=== PATIENT | male | born 1960 ===

== ENCOUNTER 2017-07-10 20:20 | Emergency (ER) | payer MEDICARE, MEDICAID ==
[2017-07-10 20:46] VITALS: BP 105/62
--- NOTE | 2017-07-10 21:19 | UC ---
Cardiac HPI - HPI Summary HPI Summary: 57 year old male with history of smoking cigarettes about 10 per day and he did smoke crack cocaine about 1 week ago presents with worsening palpitations and vague chest pressure. - History of Current Complaint Chief Complaint: [place] Stated Complaint: ALLERGIC REACTION Time Seen by Provider: 07/10/17 21:00 Hx Obtained From: Patient Onset/Duration: Sudden Onset Timing: Constant Initial Severity: Moderate Current Severity: Moderate Chest Pain Location: Mid Sternal Character: Fast Aggravating: Exertion Alleviating: Rest - Allergy/Home Medications Allergies/Adverse Reactions: Allergies Allergy/AdvReac Type Severity Reaction Status Date / Time [place] Butter Allergy Severe Rash Verified 07/10/17 20:47 Chocolate Allergy Intermediate FACIAL Verified 07/10/17 20:47 REDNESS AND PEELING SKIN Latex Allergy Itching Verified 07/10/17 20:47 Home Medications: Home Medications Clobetasol 0.05% OINT* 1 applic TOPICAL BID 07/10/17 [History Confirmed 07/10/17 ] Doxepin (NF) [Silenor (NF)] 10 mg PO BEDTIME 07/10/17 [History Confirmed ] Mometasone Furoate 0.1 % EX BID 07/10/17 [History Confirmed 07/10/17] PMH/Surg Hx/FS Hx/Imm Hx Previously Healthy: Yes - Surgical History Surgical History: Yes Surgery Procedure, Year, and Place: TONSILLECTOMY - Social History Occupation: Unemployed Lives: Alone Alcohol Use: Rare Substance Use Type: Cocaine, Marijuana Substance Use Comment - Amount & Last Used: occasional use Smoking Status (MU): Current Every Day Smoker Type: Cigarettes Amount Used/How Often: 5-10 cigarettes daily Length of Time of Smoking/Using Tobacco: 20 YRS Have You Smoked in the Last Year: Yes Household Exposure Type: Cigarettes Cessation Counseling: Patient Advised to Stop Review of Systems Skin: Rash Cardiovascular: Palpitations, Chest Pain All Other Systems Reviewed And Are Negative: Yes Physical Exam Triage Information Reviewed: Yes Appearance: Well-Appearing, No Pain Distress, Well-Nourished Vital Signs: Initial Vital Signs Temp 98.5 F 07/10/17 20:37 Pulse 70 07/10/17 20:37 Resp 12 07/10/17 20:37 BP 105/62 07/10/17 20:37 Pulse Ox 98 07/10/17 20:37 Vital Signs Reviewed: Yes Eye Exam: Normal ENT Exam: Normal Dental Exam: Normal Respiratory Exam: Normal Cardiovascular Exam: Normal Cardiovascular: Positive: Pulses Normal Abdominal Exam: Normal Musculoskeletal Exam: Normal Neurological Exam: Normal Psychological Exam: Normal Skin: Positive: rashes - maculopapular rash on the scalp, body and arms that are raised and on the scalp with a yeloow crust - Assessment/Plan Course Of Treatment: Due to the history of smoking and crack cocaine with new onset worsening palpitations he will need further work up and higher level of care . He originally wanted to avoid [facility] and was to go to [facility] but after hearing he may have to pay for the albulance he declined and wanted to go to [facility] instead. Spoke with Lizette Hamilton who will accept patient - Clinical Impression Provider Diagnoses: Chest pressure and palpitations with recent illicit drug use Discharge - Discharge Plan Condition: Good Disposition: OTHER Discharge Disposition Comment: [facility] via ambulance Patient Education Materials: Chest Pain (ED)
== END 2017-07-10 21:34 ==
LOC: UCCORT 20:20
DX: R07.89 Other chest pain (principal); R00.2 Palpitations; F12.90 Cannabis use, unspecified, uncomplicated; F17.210 Nicotine dependence, cigarettes, uncomplicated
CPT/HCPCS: 93005; 99213; G0463